=== PATIENT | female | born 1955 | race Caucasian/White ===

== ENCOUNTER 2023-03-12 21:19 | Emergency (ER) | payer MEDICARE ==
[2023-03-12] MEDS ORDERED: diphenhydrAMINE 50 MG/ML 1 ML VIAL IM STA (22:05)
[2023-03-12] MEDS ORDERED: KETOROLAC 15 MG/ML 1 ML VIAL IM STA (22:05)
[2023-03-12] MEDS ORDERED: METOCLOPRAMIDE 5 MG/ML 2 ML VIAL IM STA (22:05)
[2023-03-12 22:29] VITALS: BP 152/80; PULSE 65; RESP 20; TEMP 97.8
--- NOTE | 2023-03-12 23:15 | XR ---
EXAMINATION TYPE: XR humerus 2 views LT, XR forearm 2 views LT, XR knee left 3 views DATE OF EXAM: 03/12/2023 COMPARISON: NONE HISTORY: 67-year-old female falling injury and pain FINDINGS: Humerus: No acute fracture. The elbow and shoulder articulations appear grossly intact. Forearm: No elbow joint effusion. No acute fracture. Wrist articulation appear grossly intact. Query prior tra pezial resection for arthritis at the basal joint of the thumb. No acute fracture seen. Knee: Mild anterior soft tissue swelling. Extensor mechanism appears intact. There is a transverse lucency across a large upper pole patellar spur on the lateral view. Small joint effusion. There is tricompar tmental degenerative spurring, moderate to advanced in the medial compartment. No other acute fractur e clearly identified. IMPRESSION: 1. Humerus and forearm: No acute osseous abnormality seen. Osteoarthrosis of the basal joint of the t humb with suspected previous trapezial resection. Clinically correlate. 2. Knee: Correlate for point tenderness at the upper pole of the patella. Possible fracture through a large upper pole patellar spur. Small joint effusion nonspecific. At least moderate tricompartmental osteoarthrosis.
--- NOTE | 2023-03-12 23:30 | ED ---
Fall HPI - General Chief Complaint: Fall Stated Complaint: Fall, side and knee pain Time Seen by Provider: 03/12/23 21:41 Source: patient Mode of arrival: ambulatory - History of Present Illness Initial Comments: This patient is a 67-year-old woman who presents evaluation after she had fallen home. The patient reports landing on her left side and has pain to left shoulder and left leg. She indicates lateral aspect of thigh. When the symptoms did not improve she felt she should be evaluated here. The fall occurred in the afternoon. She denies head injury or loss of consciousness. No neck, back, chest, abdomen pain. The patient states she is having headache, she does have history of those. MD Complaint: fall Onset/Timin -: hour(s) Fall From: standing When Fall Occurred: 4-[address] Fall Occurred: home Loss of Consciousness: none Prolonged Down Time?: no Symptoms Prior to Fall: none Location - Extremities: Left: Shoulder, Thigh Severity: moderate Quality: aching Context: tripped/slipped Associated Symptoms: denies - Related Data Previous Rx's Medication Instructions Recorded Cyclobenzaprine [Flexeril] 10 mg PO TID #15 tab 03/12/23 Allergies Allergy/AdvReac Type Severity Reaction Status Date / Time haloperidol [From Haldol] Allergy Rash/Hives Verified 03/12/23 21:27 Review of Systems ROS Statement: Those systems with pertinent positive or pertinent negative responses have been documented in the HPI. ROS Other: All systems not noted in ROS Statement are negative. Constitutional: Denies: fever, weakness Eyes: Denies: vision change Respiratory: Denies: cough, dyspnea Cardiovascular: Denies: chest pain, palpitations, syncope Gastrointestinal: Denies: abdominal pain, vomiting Genitourinary: Denies: dysuria, hematuria Musculoskeletal: Reports: as per HPI, arthralgia. Denies: back pain Skin: Denies: rash Neurological: Reports: headache. Denies: weakness, numbness, confusion Past Medical History Past Medical History: Osteoarthritis (OA) Additional Past Medical History / Comment(s): headache, low BP History of Any Multi-Drug Resistant Organisms: None Reported Past Surgical History: Joint Replacement Past Psychological History: Bipolar Smoking Status: Former smoker Past Alcohol Use History: None Reported Past Drug Use History: None Reported General Exam Limitations: no limitations General appearance: alert, in no apparent distress Head exam: Present: atraumatic, normocephalic Eye exam: Present: normal appearance. Absent: scleral icterus, conjunctival injection Neck exam: Present: normal inspection, full ROM. Absent: tenderness, meningismus Respiratory exam: Present: normal lung sounds bilaterally. Absent: respiratory distress, wheezes, rales, rhonchi, stridor, chest wall tenderness Cardiovascular Exam: Present: regular rate, normal rhythm, normal heart sounds. Absent: systolic murmur, diastolic murmur, rubs, gallop GI/Abdominal exam: Present: soft. Absent: distended, tenderness, guarding Extremities exam: Present: normal inspection, full ROM, tenderness (Has tenderness to lateral aspect left hip and to the shoulder), normal capillary refill. Absent: pedal edema, calf tenderness Back exam: Present: normal inspection. Absent: CVA tenderness (R), CVA tenderness (L), vertebral tenderness Neurological exam: Present: alert, CN II-XII intact. Absent: motor sensory deficit Skin exam: Present: warm, dry, intact, normal color. Absent: rash Course Vital Signs 03/12/23 03/12/23 21:24 22:25 Temperature 98.5 F 97.8 F Pulse Rate 91 65 Respiratory 18 20 Rate Blood Pressure 163/89 152/80 O2 Sat by Pulse 96 96 Oximetry Medical Decision Making - Medical Decision Making The patient had x-ray of the left femur and left knee that I interpreted as being negative for acute fracture. The patient had x-ray of the left forearm which is interpreted as being negative for acute fracture. Was pt. sent in by a medical professional or institution (, PA, SPORTS CLERK, urgent care, hospital, or intermediate...) When possible be specific @ -[No] Did you speak to anyone other than the patient for history (EMS, parent, family, police, friend...)? What history was obtained from this source @ -[No] Did you review nursing and triage notes (agree or disagree)? Why? @ -[I reviewed and agree with nursing and triage notes] Were old charts reviewed (outside hosp., previous admission, EMS record, old EKG, old radiological studies, urgent care reports/EKG's, intermediate records)? Report findings @ -[No old charts were reviewed] Differential Diagnosis (chest pain, altered mental status, abdominal pain women, abdominal pain men, vaginal bleeding, weakness, fever, dyspnea, syncope, headache, dizziness, GI bleed, back pain, seizure, CVA, palpatations, mental health, musculoskeletal)? @ -Differential Musculoskeletal Muscular strain, contusion, ligament sprain, fracture, arthritis, septic arthritis, bursitis, cellulitis, muscle spasm, nerve compression, DVT, arterial occlusion, herpes zoster, electrolyte abnormality, tumor.... This is not meant to be in all inclusive list EKG interpreted by me (3pts min.). @ -[ X-rays interpreted by me (1pt min.). @ -[I interpreted as above CT interpreted by me (1pt min.). @ -[None done] U/S interpreted by me (1pt. min.). @ -[None done] What testing was considered but not performed or refused? (CT, X-rays, U/S, labs)? Why? @ -[None] What meds were considered but not given or refused? Why? @ -[None] Did you discuss the management of the patient with other professionals (professionals i.e. , PA, SPORTS CLERK, lab, RT, psych nurse, social science manager, area sales manager, teacher, protective services officer, manager case)? Give summary @ -[No] Was smoking cessation discussed for >3mins.? @ -[No] Was critical care preformed (if so, how long)? @ -[No] Were there social determinants of health that impacted care today? How? (Homelessness, low income, unemployed, alcoholism, drug addiction, transportation, low edu. Level, literacy, decrease access to med. care, long-term, rehab)? @ -[No] Was there de-escalation of care discussed even if they declined (Discuss DNR or withdrawal of care, Hospice)? DNR status @ -[No] What co-morbidities impacted this encounter? (DM, HTN, Smoking, COPD, CAD, Cancer, CVA, ARF, Chemo, Hep., AIDS, mental health diagnosis, sleep apnea, morbid obesity)? @ -[None] Was patient admitted / discharged? Hospital course, mention meds given and rout e, prescriptions, significant lab abnormalities, going to OR and other pertinent info. @ -[This patient is 67-year-old woman who is here for evaluation after ground- level fall. She also has headache which she does not believe is related to the fall. She does have history of headaches. The patient had x-rays which were negative for fracture. Radiology questions whether there is fractured through an osteophyte, with the patient's tenderness is on the lateral aspect, rather than over this so suspect that this is not acute finding. Patient is able to extend her leg. The patient also had relief of headache and wanted to go home following treatment with migraine medication. Undiagnosed new problem with uncertain prognosis? @ -[No] Drug Therapy requiring intensive monitoring for toxicity (Heparin, Nitro, Insulin, Cardizem)? @ -[No] Were any procedures done? @ -[No] Diagnosis/symptom? @ -[Fall injury Contusion left leg Contusion left forearm Acute headache Acute, or Chronic, or Acute on Chronic? @ -[Acute Uncomplicated (without systemic symptoms) or Complicated (systemic symptoms)? @ -[Uncomplicated Side effects of treatment? @ -[No] Exacerbation, Progression, or Severe Exacerbation? @ -[No] Poses a threat to life or bodily function? How? (Chest pain, [place], [place], pneumonia, PE, COPD, DKA, ARF, appy, cholecystitis, CVA, Diverticulitis, Homicidal, Suicidal, threat to staff... and all critical care pts) @ -[No] Disposition Clinical Impression: Fall, Migraine headache Disposition: HOME SELF-CARE Condition: Good Instructions (If sedation given, give patient instructions): Migraine Headache (ED), Contusion in Adults (ED) Prescriptions: Cyclobenzaprine [Flexeril] 10 mg PO TID #15 tab Is patient prescribed a controlled substance at d/c from ED?: No Referrals: Nonstaff,Physician [Primary Care Provider] - 1-2 days
== END 2023-03-12 23:37 | disposition home or self-care (01) ==
LOC: EC 21:19
DX: G43.909 Migraine, unspecified, not intractable, without status migrainosus (principal); Z86.59 Personal history of other mental and behavioral disorders; Z87.891 Personal history of nicotine dependence; Z88.8 Allergy status to other drugs, medicaments and biological substances; W01.0XXA Fall on same level from slipping, tripping and stumbling without subsequent striking against object, initial encounter
CPT/HCPCS: 73060; 73090; 73562; 99283; 96372 ×3; J1200; J2765; J1885